=== PATIENT | male | born 1980 | race Caucasian/White ===

== ENCOUNTER 2016-09-23 12:23 | Outpatient (CLI) | payer OTHER ==
[~2016-09-23] VITALS: Ht 185.4 cm; Wt 117.9 kg
[~2016-09-23 12:23] MED LIST: CYCL10TA45 PO; CYCL10TA9 PO; GABA-488 PO; HYDR-3714 PO; HYDR-3816 PO; HYDR-757 PO; IBP800T PO; NAPR-243 PO; ONDA8TAB13 PO; PRD20T PO; PRED20TA PO; QTP200T PO; SULF1TAB35 PO; TIZA4CAP8 PO; TRAM50TA2 PO; TRM50T PO; VENL150C53 PO
[2016-09-23 12:27] VITALS: BP 145/99
--- OUTSIDE RECORDS SUMMARY | 2016-09-23 12:27 | XMS REPORT | Continuity of Care Document ---
Author Author [facility] Organization [facility] Address Unknown Phone Unavailable Care Team Providers Care Rehab Office Coordinator Name Role Phone NO, LOCAL PHYSICIAN PCP Unavailable Insurance Providers Payer Name Policy Number Subscriber Name Relationship [facility] Administration [id number] Nino Chan Jr 20 Self / Same As Patient Advance Directives Directive Response Recorded Date/Time Advance Directives No 08/08/14 6:59pm Health Care Power of Charge Rn No 08/08/14 6:59pm Resuscitation Status Full Code 08/08/14 6:59pm Problems Medical Problems Problem Onset Date Status Acute exacerbation of chronic low back pain Unknown Active Acute exacerbation of chronic low back pain Unknown Active Medications Medication Dose Route Sig Days/Qty Instructions Order Date Discontinued Date Status Cyclobenzaprine HCl (Flexeril) 1 Each PO TID PRN 15 Qty FOR MUSCLE SPASMS 11/09/09 05/28/13 Discontinued Naproxen 1 Each PO TID PRN 20 Qty 11/09/09 05/28/13 Discontinued Tramadol HCl 1 Tab PO FOUR TIMES DAILY 20 Qty FOR PAIN 11/09/09 Discontinued Ibuprofen 1 Each PO NEEDED 05/28/13 Active Venlafaxine Hcl 150 Mg PO DAILY 05/28/13 Active Hydrocodone Bit/Acetaminophen 1 Each PO EVERY 4HRS PRN 14 Qty 05/28/13 12/04/13 Discontinued Cyclobenzaprine HCl (Flexeril) 1 Each PO Q8HR PRN 10 Qty 05/28/13 Active Quetiapine Fumarate 1 Tab PO BEDTIME 12/04/13 Active Tramadol Hcl 50 Mg PO EVERY 4HRS PRN PAIN 20 Qty 12/04/13 08/08/14 Discontinued Hydrocodone Bit/Acetaminophen 1 Tab PO EVERY 4HRS PRN PAIN 14 Qty 08/08 Active Prednisone 40 Mg PO DAILY 10 Qty 08/08/14 Active Ondansetron 8 Mg PO EVERY 6 HOURS PRN NAUSEA/VOMITING 10 Qty 08/08/14 Active Social History Social History Problem Response Recorded Date/Time Alcohol Use Occasionally Uses 08/08/2014 6:59pm Recreational Drug Use Y marijuana 08/08/2014 6:59pm Recent Foreign Travel No 08/08/2014 6:59pm Smoking Status Current Everyday Smoker 08/08/2014 6:59pm Query Response Start Date Stop Date Smoking Status Current Everyday Smoker Hospital Discharge Instructions No hospital discharge instructions. Plan of Care No plan of care. Functional Status No functional status results. Allergies, Adverse Reactions, Alerts Allergen Type Severity Reaction Status Last Updated Penicillins ([id number]) Allergy Mild Active 11/09/09 Amoxicillin ([id number]) Allergy Mild Active 11/09/09 Immunizations No immunization records. Vital Signs Acute Vital Signs Vital Response Date/Time Temperature (Fahrenheit) 98.3 degrees F (97.6 - 99.5) Temperature (Calculated Celsius) 36.93024 degrees C (36.4 - 37.5) Temperature Source Temporal Pulse Rate (adult) 96 bpm (60 - 90) Respiratory Rate 18 bpm (12 - 24) O2 Sat by Pulse Oximetry 97 % (88 - 100) Blood Pressure 126/108 mm Hg Pain Pain Intensity 4 Height (Feet) 6 feet Height (Inches) 0 inches Height (Calculated Centimeters) 182.858813 cm Weight (Pounds) 254 pounds Weight (Calculated Grams) 143173.094 gm Weight (Calculated Kilograms) 115.312545 kilograms Calculated BMI 34.44 Results No known relevant diagnostic tests, laboratory data and/or discharge summary. Procedures No known history of procedures. Encounters Encounter Location Date/Time Departed Emergency Room [facility] 08/08/14 6:41pm Recent Diagnosis
[2016-09-23 12:58] LABS: BASOPHILS # (AUTO) 0.1 10^3/uL (0.0-0.1); BASOPHILS % (AUTO) 1 % (0-10); EOSINOPHILS # (AUTO) 0.3 10^3/uL (0.0-0.3); EOSINOPHILS % (AUTO) 5 % (0-10); LYMPHOCYTES # (AUTO) 1.8 X 10^3 (1.0-4.0); LYMPHOCYTES % (AUTO) 26 % (12-44); MEAN CORPUSCULAR HEMOGLOBIN 32 PG (25-34); MEAN CORPUSCULAR HGB CONC 35 G/DL (32-36); MEAN CORPUSCULAR VOLUME 89 FL (80-99); MONOCYTES # (AUTO) 0.3 X 10^3 (0.0-1.0); MONOCYTES % (AUTO) 5 % (0-12); NEUTROPHILS # (AUTO) 4.4 X 10^3 (1.8-7.8); NEUTROPHILS % (AUTO) 64 % (42-75); PLATELET COUNT 165 10^3/uL (130-400); RED BLOOD COUNT 5.04 10^6/uL (4.35-5.85); RED CELL DISTRIBUTION WIDTH 12.7 % (10.0-14.5); WHITE BLOOD COUNT 6.9 10^3/uL (4.3-11.0)
[2016-09-23 13:12] LABS: ANION GAP 12 MMOL/L (5-14); BLOOD UREA NITROGEN 5 MG/DL (7-18); BUN/CREATININE RATIO 5; CARBON DIOXIDE 26 MMOL/L (21-32); CHLORIDE 105 MMOL/L (98-107); CREATININE SERUM 1.01 MG/DL (0.60-1.30); GFR ESTIMATED > 60; GLUCOSE 154 MG/DL (70-105); POTASSIUM 3.7 MMOL/L (3.6-5.0); SODIUM 143 MMOL/L (135-145)
== END 2016-09-23 12:50 | disposition home or self-care (01) ==
LOC: PREOP 12:23
PROVIDERS: ATTEND Otolaryngology Otolaryngology/Facial Plastic Surgery
DX: Z01.810 Encounter for preprocedural cardiovascular examination (principal); Z01.812 Encounter for preprocedural laboratory examination; Z11.2 Encounter for screening for other bacterial diseases; R22.0 Localized swelling, mass and lump, head; H65.23 Chronic serous otitis media, bilateral; H69.93 Unspecified Eustachian tube disorder, bilateral
CPT/HCPCS: 36415; 80048; 85025; 87081; 93005

== ENCOUNTER 2016-09-26 06:00 | Day surgery (SDC) | payer OTHER ==
[~2016-09-26] VITALS: Ht 185.4 cm; Wt 117.9 kg
--- OUTSIDE RECORDS SUMMARY | 2016-09-26 06:10 | XMS REPORT | Continuity of Care Document ---
Author Author [facility] Organization [facility] Address Unknown Phone Unavailable Care Team Providers Care Oil Driller Name Role Phone NO, LOCAL PHYSICIAN PCP Unavailable Insurance Providers Payer Name Policy Number Subscriber Name Relationship [facility] Administration [id number] Nino Chan Jr 20 Self / Same As Patient Advance Directives Directive Response Recorded Date/Time Advance Directives No 08/08/14 6:59pm Health Care Power of Emergency Department Technician No 08/08/14 6:59pm Resuscitation Status Full Code [...] Type Severity Reaction Status Last Updated Penicillins ([id number]) Allergy Mild Active 11/09/09 Amoxicillin ([id number]) Allergy Mild Active 11/09/09 Immunizations No immunization records. Vital Signs Acute Vital Signs Vital Response Date/Time Temperature (Fahrenheit) 98.3 degrees F (97.6 - 99.5) Temperature (Calculated Celsius) 36.28807 degrees C (36.4 - 37.5) Temperature Source Temporal Pulse Rate (adult) 96 bpm (60 - 90) Respiratory Rate 18 bpm (12 - 24) O2 Sat by Pulse Oximetry 97 % (88 - 100) Blood Pressure 126/108 mm Hg Pain Pain Intensity 4 Height (Feet) 6 feet Height (Inches) 0 inches Height (Calculated Centimeters) 182.604624 cm Weight (Pounds) 254 pounds Weight (Calculated Grams) 574336.094 gm Weight (Calculated Kilograms) 115.393483 kilograms Calculated BMI 34.44 Results No known relevant diagnostic tests, laboratory data and/or discharge summary. Procedures No known history of procedures. Encounters Encounter Location Date/Time Departed Emergency Room [facility] 08/08/14 6:41pm Recent Diagnosis
--- OUTSIDE RECORDS SUMMARY | 2016-09-26 06:10 | XMS REPORT | Continuity of Care Document ---
Author Author [facility] Organization [facility] Address Unknown Phone Unavailable Care Team Providers Care Cosmetic Consultant Name Role Phone NO, LOCAL PHYSICIAN PCP Unavailable Insurance Providers Payer Name Policy Number Subscriber Name Relationship [facility] Administration [id number] Nino Chan Jr 20 Self / Same As Patient Advance Directives Directive Response Recorded Date/Time Advance Directives No 08/08/14 6:59pm Health Care Power of Mailing Clerk No 08/08/14 6:59pm Resuscitation Status Full Code [...] Type Severity Reaction Status Last Updated Penicillins ([id number]) Allergy Mild Active 11/09/09 Amoxicillin ([id number]) Allergy Mild Active 11/09/09 Immunizations No immunization records. Vital Signs Acute Vital Signs Vital Response Date/Time Temperature (Fahrenheit) 98.3 degrees F (97.6 - 99.5) Temperature (Calculated Celsius) 36.26927 degrees C (36.4 - 37.5) Temperature Source Temporal Pulse Rate (adult) 96 bpm (60 - 90) Respiratory Rate 18 bpm (12 - 24) O2 Sat by Pulse Oximetry 97 % (88 - 100) Blood Pressure 126/108 mm Hg Pain Pain Intensity 4 Height (Feet) 6 feet Height (Inches) 0 inches Height (Calculated Centimeters) 182.561965 cm Weight (Pounds) 254 pounds Weight (Calculated Grams) 415444.094 gm Weight (Calculated Kilograms) 115.957417 kilograms Calculated BMI 34.44 Results No known relevant diagnostic tests, laboratory data and/or discharge summary. Procedures No known history of procedures. Encounters Encounter Location Date/Time Departed Emergency Room [facility] 08/08/14 6:41pm Recent Diagnosis
[2016-09-26] MEDS ORDERED: LIDOCAINE 1% 10 MG/ML 0.2 ML SYR (FOR IV START) ONE (06:27)
[2016-09-26] MEDS: LACTATED RINGERS 1,000 ML IV PRN ×2 (06:40→07:47)
--- NOTE | 2016-09-26 06:40 | Progress Note-Pre Operative ---
Pre-Operative Progress Note H&P Reviewed The H&P was reviewed, patient examined and no changes noted. Date H&P Reviewed: Sep 26, 2016 Time H&P Reviewed: 06:35 Pre-Operative Diagnosis: Nasopharyngeal Mass, Bilat SUNSHINE MASON MD Sep 26, 2016 6:40 am
[2016-09-26] MEDS ORDERED: LIDOCAINE 1% 10 MG/ML 0.2 ML SYR (FOR IV START) INJ ONE (06:45)
[2016-09-26 06:53] VITALS: BP 144/97
[2016-09-26] MEDS ORDERED: fentaNYL INJECTION 100 MCG/2 ML AMP ONE (07:08)
[2016-09-26] MEDS ORDERED: proPOfol 200 MG/20 ML (DIPRIVAN) VIAL IV ONE (07:08)
[2016-09-26] MEDS ORDERED: LIDOCAINE PF 2% 10 ML (XYLOCAINE) AMP ONE (07:08)
[2016-09-26] MEDS ORDERED: ROCURONIUM 50 MG/5 ML (ZEMURON) VIAL IV ONE (07:08)
[2016-09-26] MEDS ORDERED: MIDAZOLAM 2 MG/2 ML (VERSED) VIAL ONE ×2 (07:09→07:31)
[2016-09-26] MEDS ORDERED: ONDANSETRON 4 MG/2 ML (SDV) Z0FRAN ONE (07:14)
[2016-09-26] MEDS ORDERED: LACTATED RINGERS 1,000 ML IV ONE ×2 (07:14→08:15)
[2016-09-26] MEDS ORDERED: SEVOFLURANE (ULTANE) 15 ML INHAL SOLN ONE ×4 (07:14→08:15)
[2016-09-26] MEDS ORDERED: DEXAMETHASONE PF 10 MG/ML (DECADRON) VIAL ONE (07:14)
[2016-09-26] MEDS ORDERED: NEOSTIGMINE (BLOXIVERZ ) 1 MG/1ML 10 ML VIAL ONE (07:48)
[2016-09-26] MEDS ORDERED: GLYCOPYRROLATE 0.2 MG/ML (ROBINUL) 2 ML VIAL ONE (07:48)
--- NOTE | 2016-09-26 07:56 | Progress Note-Post Operative ---
Post-Operative Progess Note Pre-Operative Diagnosis NASOPHARYNGEAL MASS, BILAT AYO Post-Operative Diagnosis same Post-Op Procedure Note Date of Procedure: Sep 26, 2016 Name of Procedure: BMT, REmoval of Nasopharyngeal Mass Anesthesia Type get Estimated blood loss (mL): minimal Specimen(s) collected nasopharyngeal mass SUNSHINE LOPEZ MD Sep 26, 2016 7:56 am
[2016-09-26] MEDS ORDERED: APAP 325 MG/10.15 ML LIQ (TYLENOL) UDC PO PRN (08:00)
[2016-09-26] MEDS ORDERED: HYDROcodone/APAP 5 MG/325 MG (LORTAB) TAB PO PRN (08:00)
[2016-09-26] MEDS ORDERED: morphine INJ 10 MG/ML 1ML (SYR OR VIAL) ONE (08:22)
[2016-09-26] MEDS ORDERED: ONDANSETRON 4 MG/2 ML (SDV) Z0FRAN IV PRN (08:30)
[2016-09-26] MEDS ORDERED: PROMETHAZINE INJ 25 MG/ML (PHENERGAN) AMP IV PRN (08:30)
[2016-09-26] MEDS ORDERED: MEPERIDINE (DEMEROL) INJ 50 MG/ML IV PRN (08:30)
[2016-09-26] MEDS ORDERED: fentaNYL INJECTION 250 MCG/5 ML AMP IV PRN (08:30)
[2016-09-26] MEDS: morphine INJ 10 MG/ML 1ML (SYR OR VIAL) IV PRN ×2 (08:32→08:36)
[2016-09-26 08:50] VITALS: BP 148/96
[2016-09-26] MEDS ORDERED: HYDR-3812 PO (09:06)
[2016-09-26] MEDS ORDERED: CIPR5DRO EACH EAR (09:06)
[2016-09-26 09:20] VITALS: BP 147/96
[2016-09-26 09:50] VITALS: BP 147/97
== END 2016-09-26 10:00 | disposition home or self-care (01) ==
LOC: SDC 06:00
PROVIDERS: ATTEND Otolaryngology Otolaryngology/Facial Plastic Surgery
DX: H65.23 Chronic serous otitis media, bilateral (principal); J34.89 Other specified disorders of nose and nasal sinuses; F17.210 Nicotine dependence, cigarettes, uncomplicated
CPT/HCPCS: 87081

== ENCOUNTER 2016-11-11 18:36 | Emergency (ER) | payer OTHER ==
[~2016-11-11] VITALS: Ht 182.9 cm; Wt 124.7 kg
[~2016-11-11 18:36] MED LIST changes: +CIPR5DRO EACH EAR; +HYDR-3812 PO
--- OUTSIDE RECORDS SUMMARY | 2016-11-11 18:42 | XMS REPORT | Continuity of Care Document ---
Author Author [facility] Organization [facility] Address Unknown Phone Unavailable Care Team Providers Care Radiographer Name Role Phone NO, LOCAL PHYSICIAN PCP Unavailable Insurance Providers Payer Name Policy Number Subscriber Name Relationship [employer] [id number] Sunshine Ernst Jr 20 Self / Same As Patient Advance Directives Directive Response Recorded Date/Time Advance Directives No 09/26/16 7:04am Health Care Power of Bass Singer No 09/26/16 7:04am Organ Donor No 09/26/16 7:04am Resuscitation Status Full Code 09/26/16 7:04am Problems Active Problems Medical Problem Onset Date Status Acute exacerbation of chronic low back pain Unknown Acute Acute exacerbation of chronic low back pain Unknown Acute Acute exacerbation of chronic low back pain Unknown Acute Lumbar radiculopathy Unknown Acute Puncture wound of sole of right foot without complication Unknown Acute Medications Current Home Medications Medication Dose Units Route Directions Days/Qty Instructions Start Date Ciprofloxacin Hcl 5 Ml 3 Drops Each Ear Twice A Day 5 Days 09/26/16 Hydrocodone/Acetaminophen 1 Each 1-2 Tab Oral Every 4HRS as needed for Pain 40 09/26/16 Past Home Medications Medication Directions Ordered Status Cyclobenzaprine Hcl (Flexeril) 10 Mg Tablet, 1 Each Oral Three Times A Day And Prn 11/09/09 Discontinued Naproxen 500 Mg Tablet, 1 Each Oral Three Times A Day And Prn 11/09/09 Discontinued Tramadol Hcl 50 Mg Tablet, 1 Tab Oral Four Times Daily 11/09/09 Discontinued Ibuprofen 800 Mg Tablet, 1 Each Oral As Needed 05/28/13 Discontinued Venlafaxine Hcl 150 Mg Cap.sr.24h, 150 Mg Oral Daily 05/28/13 Discontinued Hydrocodone Bit/Acetaminophen 1 Each Tablet, 1 Each Oral Every 4HRS as needed 05/28/13 Discontinued Cyclobenzaprine Hcl (Flexeril) 10 Mg Tablet, 1 Each Oral Q8hr Prn 05/28/13 Discontinued Quetiapine Fumarate 200 Mg Tablet, 1 Tab Oral Bedtime 12/04/13 Discontinued Tramadol Hcl 50 Mg Tablet, 50 Mg Oral Every 4HRS as needed for Pain 12/04/13 Discontinued Hydrocodone Bit/Acetaminophen 1 Tab Tablet, 1 Tab Oral Every 4HRS as needed for Pain 08/08/14 Discontinued Prednisone 20 Mg Tablet, 40 Mg Oral Daily 08/08/14 Discontinued Ondansetron 8 Mg Tab.rapdis, 8 Mg Oral Every 6 Hours as needed for Nausea/ Vomiting 08/08/14 Discontinued Naproxen 500 Mg Tablet, 1 Each Oral Twice A Day as needed for Pain 12/29/14 Discontinued Cyclobenzaprine Hcl 10 Mg Tablet, 10 Mg Oral Every 8HRS as needed for Spasms 12/29/14 Discontinued Prednisone 20 Mg Tablet, 40 Mg Oral Daily 12/29/14 Discontinued Naproxen 500 Mg Tablet, 1 Each Oral Twice A Day as needed for Pain 12/29/14 Discontinued Cyclobenzaprine Hcl 10 Mg Tablet, 10 Mg Oral Every 8HRS as needed for Spasms 12/29/14 Discontinued Prednisone 20 Mg Tablet, 40 Mg Oral Daily 12/29/14 Discontinued Gabapentin 300 Mg Capsule, 300 Mg Oral 11/30/15 Discontinued Tizanidine Hcl 4 Mg Capsule, 4 Mg Oral 11/30/15 Discontinued Sulfamethoxazole/Trimethoprim 1 Each Tablet, 1 Each Oral Twice A Day Discontinued Sulfamethoxazole/Trimethoprim 1 Each Tablet, 1 Each Oral Twice A Day Discontinued Hydrocodone/Acetaminophen 1 Each Tablet, 1 Each Oral Every 6 Hours 04/15/16 Discontinued Prednisone 20 Mg Tab, 40 Mg Oral Daily 04/15/16 Discontinued Social History Social History Problem Response Recorded Date/Time Alcohol Use Occasionally Uses 11/30/2015 7:08pm Recreational Drug Use Y marijuana 11/30/2015 7:08pm Recent Foreign Travel No 09/26/2016 6:52am Recent Infectious Disease Exposure No 09/26/2016 6:52am Smoking Status Current Everyday Smoker 09/26/2016 7:04am Do you dip or chew tobacco? No 11/30/2015 7:08pm Type Used Cigarettes 09/26/2016 12:02pm Recent Hopitalizations No 09/26/2016 7:04am Query Response Start Date Stop Date Smoking Status Current Everyday Smoker Hospital Discharge Instructions No hospital discharge instructions. Plan of Care Discharge Date 09/26/16 10:00am Instructions/Education Provided ANESTHESIA INSTRUCTIONS POSTOP DR. LOPEZ-SINUS SURGERY DR. LOPEZ-TYMPANOSTOMY TUBES DR. LOPEZ-NASAL IRRIGATION Prescriptions See Medication Section Functional Status No functional status results. Allergies, Adverse Reactions, Alerts Allergen Type Severity Reaction Status Last Updated Penicillins ([id number]) Allergy Mild Active 11/09/09 amoxicillin ([id number]) Allergy Mild Active 11/09/09 Immunizations No immunization records. Vital Signs Acute Vital Signs Vital Response Date/Time Temperature (Fahrenheit) 97.7 degrees F (97.6 - 99.5) 09/26/2016 9:50am Temperature (Calculated Celsius) 36.23566 degrees C (36.4 - 37.5) 09/26/2016 9:50am Temperature Source Tympanic 09/26/2016 9:50am Pulse Rate (adult) 94 bpm (60 - 90) 09/26/2016 9:50am Respiratory Rate 16 bpm (12 - 24) 09/26/2016 9:50am O2 Sat by Pulse Oximetry 94 % (88 - 100) 09/26/2016 9:50am Blood Pressure 147/97 mm Hg 09/26/2016 9:50am Blood Pressure Mean 113 mm Hg 09/26/2016 6:53am Pain Numeric Pain Scale 2 09/26/2016 9:50am Pain Intensity 2 09/26/2016 9:50am Height (Feet) 6 feet 09/26/2016 6:49am Height (Inches) 1.00 inches 09/26/2016 6:49am Height (Calculated Centimeters) 185.247219 cm 09/26/2016 6:49am Weight (Pounds) 260 pounds 09/26/2016 6:49am Weight (Ounces) 0.0 oz 09/26/2016 6:49am Weight (Calculated Grams) 522356.02 gm 09/26/2016 6:49am Weight (Calculated Kilograms) 117.537088 kilograms 09/26/2016 6:49am Calculated BMI 34.3 09/26/2016 6:49am Results Pending Laboratory Results Test Name Collection Date/Time Procedures Procedure Status Date Provider(s) Biopsy of nasopharynx Completed 09/26/16 SUNSHINE LOPEZ MD Bilateral myringotomies with insertion of ventilation tubes Completed SUNSHINE LOPEZ MD Tracing only of electrocardiogram Completed 09/23/16 SUNSHINE LOPEZ MD Encounters Encounter Location Arrival/Admit Date Discharge/Depart Date Attending Provider Departed Surgical Day Care [facility] 09/26/16 6:00am 10:00am SUNSHINE LOPEZ MD Departed Clinic [facility] 09/23/16 12:23pm 09/23/16 12: 50pm SUNSHINE LOPEZ MD
[2016-11-11] MEDS ORDERED: NAPR500T PO (18:54)
[2016-11-11] MEDS ORDERED: Flexeril PO (18:54)
--- NOTE | 2016-11-11 18:55 | ED Back Pain ---
General Stated Complaint: BACK PAIN Source of Information: Patient Exam Limitations: No Limitations History of Present Illness Time Seen by Provider: 18:52 Initial Comments To ER with complaints of low back pain that starts in the low back and radiates up his back into his neck and is causing him a headache. This started earlier today after he was doing yard work for his brother. No specific injury but pain has become progressive as time has gone on. No fevers or chills. No radiation down the legs. Location: Paraspinous Muscles Timing/Duration: 4-6 Hours Severity: Mild Associated Symptoms: No muscle spasms, lower back pain Allergies and Home Medications Allergies Coded Allergies: Penicillins (Unverified Allergy, Mild, 11/09/09) amoxicillin (Unverified Allergy, Mild, 11/09/09) Home Medications Ciprofloxacin HCl 5 Ml Drops 5Days 3 DROPS EACH EAR BID Prescribed by: LORA LABOY on 09/26/16 09 Hydrocodone/Acetaminophen 1 Each Tablet #40 1-2 TAB PO Q4H PRN PRN PAIN Prescribed by: LOAR LABOY on 09/26/16 0906 Constitutional: see HPINo chills, No fever EENTM: see HPI Respiratory: no symptoms reported Cardiovascular: no symptoms reported Genitourinary: no symptoms reported Musculoskeletal: see HPI back pain Skin: no symptoms reported Psychiatric/Neurological: No Symptoms Reported Past Redxuip-Jzutvj-Ctmwth Hx Patient Social History Type Used: Cigarettes Recent Foreign Travel: No Contact w/Someone Who Travel: No Recent Hopitalizations: No Immunizations Up To Date Tetanus Booster (TDap): More than 5yrs Seasonal Allergies Seasonal Allergies: No Surgeries HX Surgeries: Yes (NECK, TUBES IN EARS) Surgeries: Cystectomy Respiratory Hx Respiratory Disorders: No Cardiovascular Hx Cardiac Disorders: No Neurological Hx Neurological Disorders: No Reproductive System Hx Reproductive Disorders: No Genitourinary Hx Genitourinary Disorders: No Gastrointestinal Hx Gastrointestinal Disorders: No Musculoskeletal Hx Musculoskeletal Disorders: Yes Musculoskeletal Disorders: Chronic Back Pain Endocrine Hx Endocrine Disorders: No HEENT HX ENT Disorders: Yes (NASOPHARYNGEAL MASS) HEENT Disorders: Chronic Ear Infection Loss of Vision: Denies Hearing Impairment: Denies Cancer Hx Cancer: No Psychosocial Hx Psychiatric Problems: Yes Behavioral Health Disorders: Anxiety, PTSD, Depression Integumentary HX Skin/Integumentary Disorder: No Blood Transfusions Hx Blood Disorders: No Family Medical History Significant Family History: No Pertinent Family Hx Physical Exam Vital Signs Capillary Refill : General Appearance: No Apparent Distress WD/WN HEENT: PERRL/EOMI TMs Normal Neck: Full Range of Motion Normal Inspection Respiratory: No Accessory Muscle Use No Respiratory Distress Gastrointestinal: Non Tender Soft Neurologic/Psychiatric: Alert Oriented x3 Skin: Normal Color Warm/Dry Progress/Results/Core Measures Results/Orders My Orders Orders-LINCOLN CHARLES APRN Ketorolac Injection (Toradol Injection) (11/11/16 19:00) Orphenadrine Injection (Norflex Injectio (11/11/16 19:00) Departure Impression Impression: Primary Impression: low back pain Disposition: HOME, SELF-CARE Condition: Stable Departure-Patient Inst. Decision time for Depature: 18:53 Referrals: NO,LOCAL PHYSICIAN (PCP/Family) Primary Care Physician Patient Instructions: Low Back Pain (DC) Add. Discharge Instructions: 1. Medication as directed 2. See your doctor next week 3. Scripts [Flexeril] No Conflict Check5 Mg PO TID PRN PAIN #20 Prov:LINCOLN CHARLES APRN 11/11/16 Naproxen (Naprosyn)500 Mg [id number] Mg PO BID PRN BACK PAIN #30 TAB Prov:LINCOLN CHARLES APRN 11/11/16 LINCOLN CHARLES APRN Nov 11, 2016 18:54
[2016-11-11] MEDS ORDERED: KETOROLAC 60 MG/2 ML VIAL IM ONE (19:00)
[2016-11-11] MEDS ORDERED: ORPHENADRINE 60 MG/2 ML (NORFLEX) AMP IM ONE (19:00)
[2016-11-11 19:26] VITALS: BP 129/94
== END 2016-11-11 19:25 | disposition home or self-care (01) ==
LOC: EDUNIT# 18:36 → ER 18:38
DX: M54.5 Low back pain (principal)
CPT/HCPCS: 96372; 99281

== ENCOUNTER 2017-11-18 11:03 | Emergency (ER) | payer OTHER ==
[~2017-11-18] VITALS: Ht 188 cm; Wt 124.7 kg
[~2017-11-18 11:03] MED LIST changes: +ACHD5005 PO; +Flexeril PO; +HYDR-34 PO; -HYDR-3812 PO; -HYDR-3816 PO; +NAPR-1071 PO
--- OUTSIDE RECORDS SUMMARY | 2017-11-18 11:09 | XMS REPORT ---
Author Author DUNCAN SIDDIQUI Organization [employer] Address Unknown Phone Unavailable Care Team Providers Care Group Home Worker Name Role Phone DUNCAN SIDDIQUI CP Unavailable Allergies, Adverse Reactions, Alerts Substance Reaction Event Type Penicillin V Potassium Info Not Available Drug Allergy Amoxicillin Info Not Available Drug Allergy Problems Problem Type Condition Code Onset Dates Condition Status Problem Bilateral tinnitus H93.13 Active Problem Lumbago 724.2 Active Problem Hearing loss, unspecified laterality H91.90 Active Assessment Bilateral tinnitus H93.13 Active Assessment Acute suppurative otitis media of left ear without spontaneous rupture of tympanic membrane, recurrence not specified H66.002 Active Assessment Hearing loss, unspecified laterality H91.90 Active Medications Medication Code System Code Instructions Start Date End Date Status Dosage Zithromax Z-Abner [facility] [address]-65 250 MG Orally Once a day Jul 01, 2016 Jul 06, 2016 2 tablets on the first day, then 1 tablet daily for 4 days Fluticasone Propionate [facility] [address]-95 50 MCG/ACT Nasally twice a day Jul 01, 2016 1 spray in each nostril Procedures Procedure Coding System Code Date Office Visit, New Pt., Level 2 CPT-4 86704 Jul 01, 2016 Vital Signs Date/Time: Jul 01, 2016 Cardiac Monitoring Heart Rate 90 bpm Weight 269.1 lbs Height 71 in BMI 37.53 Index Blood Pressure Diastolic 84 mmHg Blood Pressure Systolic 126 mmHg Results No Known Results Summary Purpose [employer] Submission
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
--- NOTE | 2017-11-18 11:34 | ED Back Pain ---
General Chief Complaint: Back Problems Stated Complaint: BACK PAIN History of Present Illness Date Seen by Provider: Nov 18, 2017 Time Seen by Provider: 11:29 Initial Comments Patient to the emergency room with complaints of lower diffuse pain. Patient reports waking up yesterday morning 11/17/17 with a stiff back and reports having to take a hot shower to loosen up the muscle. Patient denies injury but reports jumping on the trampoline on 11/14/17 and that he may have pulled a muscle. Patient denies loss of bowel or bladder, denies any loss of sensation to the genital area. Location: Lumbar Spine Timing/Duration: 1-2 Days Severity: Mild, Moderate Pain/Injury Location: None Radiation: Other (hips bilaterally) Method of Injury: Unknown (possibly from jumping on a trampoline) Modifying Factors: Improves With Other (ICY Hot) Associated Symptoms: denies symptoms (review) Allergies and Home Medications Allergies Coded Allergies: Penicillins (Unverified Allergy, Mild, 11/09/09) amoxicillin (Unverified Allergy, Mild, 11/09/09) Home Medications No Active Prescriptions or Reported Meds Patient Home Medication List Home Medication List Reviewed: Yes Constitutional: see HPI, No chills, No fever EENTM: see HPI Respiratory: no symptoms reported, see HPI Cardiovascular: no symptoms reported, see HPI Gastrointestinal: no symptoms reported, see HPI Genitourinary: no symptoms reported Musculoskeletal: see HPI, back pain Skin: no symptoms reported Psychiatric/Neurological: No Symptoms Reported Past Muygdcd-Lamowt-Ymgqcf Hx Patient Social History Drug of Choice: hx cannibus Type Used: Cigarettes 2nd Hand Smoke Exposure: Yes Recent Foreign Travel: No Contact w/Someone Who Travel: No Recent Hopitalizations: No Immunizations Up To Date Tetanus Booster (TDap): More than 5yrs Seasonal Allergies Seasonal Allergies: No Surgeries Surgeries: Cystectomy Reproductive System Hx Reproductive Disorders: No Musculoskeletal Musculoskeletal Disorders: Chronic Back Pain HEENT HEENT Disorders: Chronic Ear Infection Loss of Vision: Denies Hearing Impairment: Denies Psychosocial Behavioral Health Disorders: Anxiety, PTSD, Depression Family Medical History Significant Family History: No Pertinent Family Hx Physical Exam Vital Signs Capillary Refill : General Appearance: No Apparent Distress, WD/WN HEENT: PERRL/EOMI, TMs Normal Neck: Full Range of Motion, Normal Inspection Respiratory: No Accessory Muscle Use, No Respiratory Distress Gastrointestinal: Normal Bowel Sounds, Non Tender, Soft Extremity: Normal Capillary Refill, Normal Inspection Neurologic/Psychiatric: Alert, Oriented x3, No Motor/Sensory Deficits Skin: Normal Color, Warm/Dry Progress/Results/Core Measures Results/Orders My Orders Orders - LINCOLN CHARLES APRN Ketorolac Injection (Toradol Injection) (11/18/17 11:45) Orphenadrine Injection (Norflex Injectio (11/18/17 11:45) Departure Impression Impression: Primary Impression: Back pain Disposition: HOME, SELF-CARE Condition: Stable Departure-Patient Inst. Decision time for Depature: 11:43 Referrals: NO,LOCAL PHYSICIAN (PCP) Primary Care Physician Patient Instructions: Lumbar Muscle Strain (DC) Add. Discharge Instructions: 1. Medication as directed 2. Return to ER for any concerns All discharge instructions reviewed with patient and/or family. Voiced understanding. Scripts Cyclobenzaprine HCl (Cyclobenzaprine HCl) 5 Mg Tablet 5 MG PO TID Y for PAIN-MODERATE, #21 TAB Prov: LINCOLN CHARLES APRN 11/18/17 Naproxen (Naproxen) 500 Mg Tablet 500 MG PO BID Y for BACK PAIN, #30 TAB Prov: LINCOLN CHARLES APRN 11/18/17 Images Torso/Trunk 1 - LINCOLN CHARLES APRN Nov 18, 2017 11:34
[2017-11-18 11:45] VITALS: BP 161/93
[2017-11-18] MEDS ORDERED: CYCL5TAB PO (11:45)
[2017-11-18] MEDS ORDERED: ORPHENADRINE 60 MG/2 ML (NORFLEX) AMP IM ONE (11:45)
[2017-11-18] MEDS ORDERED: KETOROLAC 60 MG/2 ML VIAL IM ONE (11:45)
[2017-11-18] MEDS ORDERED: NAPR-915 PO (11:45)
== END 2017-11-18 11:45 | disposition home or self-care (01) ==
LOC: EDUNIT# 11:03 → ER 11:04
DX: M54.5 Low back pain (principal); F41.9 Anxiety disorder, unspecified; F43.10 Post-traumatic stress disorder, unspecified; F32.9 Major depressive disorder, single episode, unspecified; Z88.0 Allergy status to penicillin; Z88.1 Allergy status to other antibiotic agents; Z77.22 Contact with and (suspected) exposure to environmental tobacco smoke (acute) (chronic); Z90.6 Acquired absence of other parts of urinary tract
CPT/HCPCS: 96372; 99284

== ENCOUNTER 2018-08-05 13:03 | Emergency (ER) | payer OTHER ==
[~2018-08-05] VITALS: Ht 182.9 cm; Wt 129.3 kg
[~2018-08-05 13:03] MED LIST changes: +CYCL5TAB PO; +NAPR-915 PO
[2018-08-05] MEDS ORDERED: LISINOPRIL (13:27)
[2018-08-05] MEDS ORDERED: CEFD300C3 PO (13:44)
--- NOTE | 2018-08-05 13:45 | ED EENT ---
History of Present Illness General Chief Complaint: Ear Problems Stated Complaint: RT. EAR INJURY Nursing Triage Note: ARRIVED VIA AMB TO ROOM 08 WITHOUT DIFFICULTY. STATES HE WOKE UP THIS AM WITH BLOOD IN HIS PILLOW AND PULLED BLOOD IN HIS EAR. DENIES INJURY OR PAIN. Source: patient Exam Limitations: no limitations History of Present Illness Date Seen by Provider: Aug 05, 2018 Time Seen by Provider: 13:41 Initial Comments Patient is a 38-year-old male who presents to the emergency room with complaints of right ear pain and bloody drainage from his right ear that he noticed this morning when he woke up. He denies known injury. He does have tubes in his years for frequent ear infections. Denies fevers. Timing/Duration: this morning Location: ear (R) Prearrival Treatment: no prearrival treatment Associated Symptoms: ear drainage Allergies and Home Medications Allergies Coded Allergies: Penicillins (Unverified Allergy, Mild, 11/09/09) amoxicillin (Unverified Allergy, Mild, 11/09/09) Home Medications Cefdinir 300 Mg Capsule, 300 MG PO BID Prescribed by: MAGUE CRABTREE on 08/05/18 1344 Levofloxacin 750 Mg Tablet, 750 MG PO DAILY Prescribed by: MAGUE CRABTREE on 08/05/18 1431 Patient Home Medication List Home Medication List Reviewed: Yes Review of Systems Review of Systems Constitutional: no symptoms reported, see HPI Ears: See HPI, Pain, Bloody Discharge (right ear) All Other Systems Reviewed Negative Unless Noted: Yes Past Msakwev-Unageq-Hwzxmi Hx Past Med/Social Hx: Reviewed Nursing Past Med/Soc Hx Patient Social History Alcohol Use: Denies Use Recreational Drug Use: Yes Drug of Choice: POT Smoking Status: Current Everyday Smoker Type Used: Cigarettes 2nd Hand Smoke Exposure: Yes Recent Foreign Travel: No Contact w/Someone Who Travel: No Recent Infectious Disease Expo: No Recent Hopitalizations: No Immunizations Up To Date Tetanus Booster (TDap): More than 5yrs Seasonal Allergies Seasonal Allergies: No Past Medical History Surgeries: Yes (NECK, TUBES IN EARS) Cystectomy Respiratory: No Cardiac: Yes Hypertension Neurological: No Reproductive Disorders: No Genitourinary: No Gastrointestinal: No Musculoskeletal: Yes Chronic Back Pain Endocrine: No Chronic Ear Infection Loss of Vision: Denies Hearing Impairment: Denies Cancer: No Psychosocial: Yes Anxiety, PTSD, Depression Integumentary: No Blood Disorders: No Family Medical History Reviewed Nursing Family Hx No Pertinent Family Hx Physical Exam Vital Signs Vital Signs - First Documented 08/05/18 13:17 Temp 97.5 Pulse 109 Resp 16 B/P (MAP) 163/94 (117) Pulse Ox 98 O2 Delivery Room Air Height, Weight, BMI Height: 0'72.00" Weight: 285lbs. 0.0oz. 129.482097ma; 34.3 BMI Method:Stated General Appearance: WD/WN, no apparent distress Eyes: bilateral eye normal inspection, bilateral eye PERRL, bilateral eye EOMI Ears: right ear bleeding, right ear discharge (purulent bloody discharge from tube be in ear.); bilateral ear auricle normal, bilateral ear TM normal (tube is in place) Cardiovascular: normal peripheral pulses, regular rate, rhythm, no edema, no gallop, no JVD, no murmur Respiratory: chest non-tender, lungs clear, normal breath sounds, no respiratory distress, no accessory muscle use Neurologic/Psychiatric: alert, oriented x 3 Progress/Results/Core Measures Results/Orders Vital Signs/I&O 08/05/18 08/05/18 13:17 13:57 Temp 97.5 97.5 Pulse 109 109 Resp 16 16 B/P (MAP) 163/94 (117) 163/94 (117) Pulse Ox 98 98 O2 Delivery Room Air Blood Pressure Mean: 117 Progress Progress Note : Progress Note Patient presented back to the emergency room shortly after discharge and reported that he could not afford the Ceftin ear that was prescribed. Levaquin was ordered. Departure Impression Primary Impression: Otitis media Disposition: 01 HOME, SELF-CARE Condition: Stable/Unchanged Departure-Patient Inst. Decision time for Depature: 13:42 Referrals: NO,LOCAL PHYSICIAN (PCP) Primary Care Physician Patient Instructions: Ear Infections (Otitis Media) (DC) Add. Discharge Instructions: Take medications as directed. Tylenol and ibuprofen as directed by the bottle for pain relief. Follow-up with your primary care provider and Dr. Dias within 1 week for recheck. Return back to the emergency room for any worsening symptoms or concerns as needed. All discharge instructions reviewed with patient and/or family. Voiced understanding. Scripts Levofloxacin (Levaquin) 750 Mg Tablet 750 MG PO DAILY for 7 Days, #7 TAB Prov: MAGUE CRABTREE 08/05/18 Cefdinir (Cefdinir) 300 Mg Capsule 300 MG PO BID for 10 Days, #20 CAP Prov: MAGUE CRABTREE 08/05/18 MAGUE CRABTREE Aug 05, 2018 13:44
[2018-08-05 13:57] VITALS: BP 163/94
[2018-08-05] MEDS ORDERED: LEVO750T9 PO (14:31)
== END 2018-08-05 13:57 | disposition home or self-care (01) ==
LOC: EDUNIT# 13:03 → ER 13:06
DX: H66.91 Otitis media, unspecified, right ear (principal); I10 Essential (primary) hypertension; F41.9 Anxiety disorder, unspecified; F43.10 Post-traumatic stress disorder, unspecified; F32.9 Major depressive disorder, single episode, unspecified; F12.10 Cannabis abuse, uncomplicated; F17.210 Nicotine dependence, cigarettes, uncomplicated; Z88.0 Allergy status to penicillin; Z90.6 Acquired absence of other parts of urinary tract
CPT/HCPCS: 99282

== ENCOUNTER 2020-01-26 09:25 | Emergency (ER) | payer OTHER ==
[~2020-01-26] VITALS: Ht 182 cm; Wt 123.0 kg
[~2020-01-26 09:25] MED LIST changes: +CEFD300C3 PO; +LEVO750T9 PO; +LISINOPRIL
[2020-01-26] MEDS ORDERED: LACTATED RINGERS 1,000 ML IV STA (09:39)
[2020-01-26] MEDS ORDERED: KETOROLAC 30 MG/ML VIAL IVP STA (09:39)
[2020-01-26] MEDS ORDERED: ONDANSETRON 4 MG/2 ML (SDV) Z0FRAN IVP ONE (09:45)
[2020-01-26 09:50] LABS: BILIRUBIN,URINE NEGATIVE (NEGATIVE); CLARITY,URINE CLEAR; COLOR,URINE YELLOW; GLUCOSE, URINE (UA) NEGATIVE (NEGATIVE); KETONES,URINE NEGATIVE (NEGATIVE); LEUKOCYTE ESTERASE ,URINE NEGATIVE (NEGATIVE); NITRITE,URINE NEGATIVE (NEGATIVE); PH,URINE 8.5 (5-9); PROTEIN,URINE TRACE (NEGATIVE)
[2020-01-26 09:52] LABS: BASOPHILS # (AUTO) 0.1 10^3/uL (0.0-0.1); BASOPHILS % (AUTO) 1 % (0-10); EOSINOPHILS # (AUTO) 1.2 10^3/uL (0.0-0.3); EOSINOPHILS % (AUTO) 7 % (0-10); HEMATOCRIT 51 % (40-54); HEMOGLOBIN 17.5 G/DL (13.3-17.7); LYMPHOCYTES % (AUTO) 12 % (12-44); MEAN CORPUSCULAR HEMOGLOBIN 31 PG (25-34); MEAN CORPUSCULAR HGB CONC 34 G/DL (32-36); MEAN CORPUSCULAR VOLUME 90 FL (80-99); MONOCYTES # (AUTO) 0.9 X 10^3 (0.0-1.0); MONOCYTES % (AUTO) 5 % (0-12); NEUTROPHILS # (AUTO) 12.7 X 10^3 (1.8-7.8); NEUTROPHILS % (AUTO) 75 % (42-75); PLATELET COUNT 182 10^3/uL (130-400); RED CELL DISTRIBUTION WIDTH 13.3 % (10.0-14.5); WHITE BLOOD COUNT 16.9 10^3/uL (4.3-11.0)
--- NOTE | 2020-01-26 09:53 | ED Abdominal Pain ---
General Chief Complaint: Abdominal/GI Problems Stated Complaint: STOMACH PAIN Nursing Triage Note: PT CO OF ABD PAIN THAT STARTED LAST PM RADIATED TO SCROTUM. PT CO OF SWEATING RATES PAIN 06/24 Sepsis Screen: No Definite Risk Source of Information: Patient Exam Limitations: No Limitations History of Present Illness Date Seen by Provider: January 26, 2020 Time Seen by Provider: 09:36 Initial Comments Here with complaint of lower abdominal pain that started last night and has worsened this morning. States that the pain radiates from the bladder area down to the groin. The pain has caused him to go into sweats and a little nauseated. Denies dysuria specifically. Denies blood in his urine or stool. Denies breathing problems or fevers. He has never had anything like this before. No history of kidney stones. Timing/Duration: 12 Hours, Changing Over Time Severity/Quality: Moderate, Aching, Cramping Location: Suprapubic Radiation: Groin Activities at Onset: None Modifying Factors: Improves With Other (no exacerbating or relieving factors) Associated Symptoms: No Back Pain, No Chest Pain; Diaphoresis; No Fever/Chills; Nausea/Vomiting; No Shortness of Air, No Swelling/Mass in Abdomen, No Weakness Allergies and Home Medications Allergies Coded Allergies: Penicillins (Unverified Allergy, Mild, 11/09/09) amoxicillin (Unverified Allergy, Mild, 11/09/09) Home Medications Cefdinir 300 Mg Capsule, 300 MG PO BID Prescribed by: MAGUE CRABTREE on 08/05/18 1344 Levofloxacin 750 Mg Tablet, 750 MG PO DAILY Prescribed by: MAGUE CRABTREE on 08/05/18 1431 Patient Home Medication List Home Medication List Reviewed: Yes Review of Systems Review of Systems Constitutional: see HPI; No chills, No fever EENTM: No Symptoms Reported Respiratory: No Symptoms Reported Gastrointestinal: See HPI Genitourinary: See HPI Musculoskeletal: no symptoms reported Skin: no symptoms reported Psychiatric/Neurological: No Symptoms Reported All Other Systems Reviewed Negative Unless Noted: Yes Past Hfuzkvf-Ulujhs-Tacpie Hx Past Med/Social Hx: Reviewed Nursing Past Med/Soc Hx Patient Social History Alcohol Use: Denies Use 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 Smoking Status: Current Everyday Smoker Type Used: Cigarettes 2nd Hand Smoke Exposure: Yes Recent Foreign Travel: No Contact w/Someone Who Travel: No Recent Infectious Disease Expo: No Recent Hopitalizations: No Physical Abuse: No Sexual Abuse: No Immunizations Up To Date Tetanus Booster (TDap): More than 5yrs Seasonal Allergies Seasonal Allergies: No Past Medical History Surgeries: Yes (NECK, TUBES IN EARS) Cystectomy Respiratory: No Cardiac: Yes Hypertension Neurological: No Reproductive Disorders: No Genitourinary: No Gastrointestinal: No Musculoskeletal: Yes Chronic Back Pain Endocrine: No Chronic Ear Infection Loss of Vision: Denies Hearing Impairment: Denies Cancer: No Psychosocial: Yes Anxiety, PTSD, Depression Integumentary: No Blood Disorders: No Family Medical History Reviewed Nursing Family Hx No Pertinent Family Hx Physical Exam Vital Signs Vital Signs - First Documented 01/26/20 09:25 Temp 36.7 Pulse 105 Resp 18 B/P (MAP) 140/94 (109) Pulse Ox 100 Capillary Refill : Less Than 3 Seconds Height/Weight/BMI Height: 0'72.00" Weight: 285lbs. 0.0oz. 129.550229zp; 37.00 BMI Method:Stated General Appearance: WD/WN, mild distress HEENT: PERRL/EOMI, pharynx normal Neck: full range of motion, supple Respiratory: lungs clear, normal breath sounds Cardiovascular: no murmur, tachycardia Peripheral Pulses: 2+ Dorsalis Pedis (R), 2+ Left Dors-Pedis (L), 2+ Radial Pulses (R), 2+ Radial Pulses (L) Gastrointestinal: soft, tenderness (suprapubic region) Extremities: non-tender, normal inspection Back: normal inspection, no CVA tenderness, no vertebral tenderness Neurologic/Psychiatric: alert, oriented x 3 Skin: normal color, warm/dry Progress/Results/Core Measures Results/Orders Lab Results Laboratory Tests Test 01/26/20 09:30 Range/Units White Blood Count 16.9 H 4.3-11.0 10^3/uL Red Blood Count 5.66 4.35-5.85 10^6/uL Hemoglobin 17.5 13.3-17.7 G/DL Hematocrit 51 40-54 % Mean Corpuscular Volume 90 80-99 FL Mean Corpuscular Hemoglobin 31 25-34 PG Mean Corpuscular Hemoglobin Concent 34 32-36 G/DL Red Cell Distribution Width 13.3 10.0-14.5 % Platelet Count 182 130-400 10^3/uL Mean Platelet Volume 12.0 H 7.4-10.4 FL Neutrophils (%) (Auto) 75 42-75 % Lymphocytes (%) (Auto) 12 12-44 % Monocytes (%) (Auto) 5 0-12 % Eosinophils (%) (Auto) 7 0-10 % Basophils (%) (Auto) 1 0-10 % Neutrophils # (Auto) 12.7 H 1.8-7.8 X 10^3 Lymphocytes # (Auto) 2.0 1.0-4.0 X 10^3 Monocytes # (Auto) 0.9 0.0-1.0 X 10^3 Eosinophils # (Auto) 1.2 H 0.0-0.3 10^3/uL Basophils # (Auto) 0.1 0.0-0.1 10^3/uL Neutrophils % (Manual) 77 % Lymphocytes % (Manual) 12 % Monocytes % (Manual) 3 % Eosinophils % (Manual) 5 % Band Neutrophils 3 % Blood Morphology Comment NORMAL Urine Color YELLOW Urine Clarity CLEAR Urine pH 8.5 5-9 Urine Specific [place] 1.015 L 1.016-1.022 Urine Protein TRACE H NEGATIVE Urine Glucose (UA) NEGATIVE NEGATIVE Urine Ketones NEGATIVE NEGATIVE Urine Nitrite NEGATIVE NEGATIVE Urine Bilirubin NEGATIVE NEGATIVE Urine Urobilinogen 1.0 < = 1.0 MG/DL Urine Leukocyte Esterase NEGATIVE NEGATIVE Urine RBC (Auto) NEGATIVE NEGATIVE Urine RBC NONE /HPF Urine WBC NONE /HPF Urine Crystals NONE /LPF Urine Bacteria NEGATIVE /HPF Urine Casts NONE /LPF Urine Mucus LARGE H /LPF Urine Culture Indicated NO Sodium Level 139 135-145 MMOL/L Potassium Level 3.9 3.6-5.0 MMOL/L Chloride Level 105 98-107 MMOL/L Carbon Dioxide Level 23 21-32 MMOL/L Anion Gap 11 5-14 MMOL/L Blood Urea Nitrogen 11 7-18 MG/DL Creatinine 1.07 0.60-1.30 MG/DL Estimat Glomerular Filtration Rate > 60 BUN/Creatinine Ratio 10 Glucose Level 116 H 70-105 MG/DL Calcium Level 9.5 8.5-10.1 MG/DL Corrected Calcium 8.5-10.1 MG/DL Total Bilirubin 0.9 0.1-1.0 MG/DL Aspartate Amino Transf (AST/SGOT) 24 5-34 U/L Alanine Aminotransferase (ALT/SGPT) 34 0-55 U/L Alkaline Phosphatase 71 40-136 U/L C-Reactive Protein High Sensitivity 1.90 H 0.00-0.50 MG/DL Total Protein 7.4 6.4-8.2 GM/DL Albumin 4.6 H 3.2-4.5 GM/DL My Orders Orders - BRENNON BARAJAS MD Cbc With Automated Diff (01/26/20 09:39) Comprehensive Metabolic Panel (01/26/20 09:39) Hs C Reactive Protein (01/26/20 09:39) Ua Culture If Indicated (01/26/20 09:39) Ondansetron Injection (Zofran Injectio (01/26/20 09:45) Lactated Ringers (Lr 1000 Ml Iv Solution (01/26/20 09:39) Ed Iv/Invasive Line Start (01/26/20 09:39) Ketorolac Injection (Toradol Injection) (01/26/20 09:39) Manual Differential (01/26/20 09:30) Ct Abd/Pelv W (Appendicitis) (01/26/20 10:29) Iohexol Injection (Omnipaque 350 Mg/Ml 1 (01/26/20 10:45) Received Contrast (Hold Metformin- Contr (01/26/20 10:45) Ns (Ivpb) (Sodium Chloride 0.9% Ivpb Bag (01/26/20 10:45) Medications Given in ED Current Medications Medications Dose Ordered Sig/Anni Route Start Time Stop Time Status Last Admin Dose Admin Iohexol 100 ml ONCE ONCE IV 01/26/20 10:45 01/26/20 10:58 DC 01/26/20 10:54 100 ML Ondansetron HCl 4 mg ONCE ONCE IVP 01/26/20 09:45 01/26/20 09:46 DC 01/26/20 09:47 4 MG Sodium Chloride 100 ml ONCE ONCE IV 01/26/20 10:45 01/26/20 10:58 DC 01/26/20 10:54 80 ML Vital Signs/I&O 01/26/20 09:25 Temp 36.7 Pulse 105 Resp 18 B/P (MAP) 140/94 (109) Pulse Ox 100 Blood Pressure Mean: 109 Progress Progress Note : Progress Note Seen and evaluated. IV, labs, UA, LR 1 L bolus, Zofran 4 mg IV and Toradol [address] abdomen and pelvis pending UA study. Monitor patient. CT abdomen pelvis ordered due to pain. UA negative. White count elevated. Due to central location in the lower abdomen, diverticulitis and appendicitis with both feet in the differential. 1140: CT abdomen and pelvis complete. Diverticulitis noted without perforation or abscess. We will initiate outpatient treatment per patient wishes. Return precautions discussed at length. Patient also will need to follow-up with [place] for surgical referral. This was discussed. Discharged home with return precautions. Patient verbalize understanding instructions and agreement with plan. Diagnostic Imaging Diagonstic Imaging: CT Plain Films/CT/US/NM/MRI: abdomen, pelvis Comments [facility] [place] [place] NAME: SUNSHINE CHAN [facility]el [facility] REC#: [id number] PT STATUS: REG ER : 1980 PHYSICIAN: BRENNON BARAJAS MD ADMIT DATE: 01/26/20/ER Draft Date of Exam:01/26/20 CT ABD/PELV W (APPENDICITIS) PROCEDURE: CT abdomen and pelvis with contrast, rule out appendicitis. TECHNIQUE: Multiple contiguous axial images were obtained through the abdomen and pelvis after the administration of intravenous contrast. All CT scans use one or more of the following dose optimizing techniques: automated exposure control, MA and/or KvP adjustment based on a patient size and exam type, or iterative reconstruction. INDICATION: Pelvic and scrotal pain. COMPARISON: No priors. FINDINGS: There are findings most consistent with acute sigmoid diverticulitis at its [id number] one-third. There are regional thickened diverticula and perisigmoidal edematous and inflammatory changes infiltrating the adjacent fat. A tiny bubble of air posterior to the thickened inflamed sigmoid on axial image 107 is believed to be gas within a diverticulum itself. No convincing evidence for extraluminal air or transmural perforation. There is no gas or obvious intraluminal complexity involving the lumen of the adjacent urinary bladder. There is no anti-dependent free gas. No resultant bowel obstruction. No abscess or drainable fluid collection. There is no hydroureteronephrosis. The unobstructed kidneys appeared normal. The air-containing appendix is well visualized and is normal. The remaining abdominopelvic solid and hollow viscera are unremarkable. IMPRESSION: 1. Findings of acute [id number]-[id number] sigmoid diverticulitis without abscess, obstruction, nor convincing evidence for perforation. No findings of fistula. 2. Normal appendix with unobstructed urinary tracts. Dictated on workstation # [id number] Dict: 01/26/20 1101 Trans: 01/26/20 1110 [id number] Interpreted by: LATOYA MENDIETA Electronically signed by: Departure Impression Primary Impression: Sigmoid diverticulitis Disposition: HOME, SELF-CARE Condition: Stable Departure-Patient Inst. Decision time for Depature: 11:39 Referrals: NO,LOCAL PHYSICIAN (PCP/Family) Primary Care Physician Patient Instructions: Diverticulitis (DC) Add. Discharge Instructions: All discharge instructions reviewed with patient and/or family. Voiced understanding. It is very important that you follow[facility] with [facility] for [facility] to [facility] for further evaluation including colonoscopy. Take medications as directed. You may take ibuprofen 600 mg every 8 hours as needed for fever or pain. You may take Tylenol/acetaminophen 1000 mg every 8 hours as needed for fever or pain. Do not take the Tylenol/acetaminophen with the hydrocodone- containing compound as they both have acetaminophen in them. Clear liquid or light diet for the next few days and then advance as tolerated. Return for worse pain, fever, vomiting, weakness, blood in your stool, increasing abdominal pain or other concerns as needed. Scripts Metronidazole (Metronidazole) 500 Mg Tablet 500 MG PO BID, #14 TAB 0 Refills Prov: BRENNON BARAJAS MD 01/26/20 Ciprofloxacin HCl (Ciprofloxacin HCl) 500 Mg Tablet 500 MG PO BID, #14 TAB 0 Refills Prov: BRENNON BARAJAS MD 01/26/20 BRENNON BARAJAS MD January 26, 2020 09:53
[2020-01-26 09:59] LABS: BACTERIA,URINE NEGATIVE /HPF
[2020-01-26 10:02] LABS: ALBUMIN 4.6 GM/DL (3.2-4.5); CHLORIDE 105 MMOL/L (98-107); POTASSIUM 3.9 MMOL/L (3.6-5.0); SODIUM 139 MMOL/L (135-145)
[2020-01-26 10:03] LABS: CALCIUM 9.5 MG/DL (8.5-10.1)
[2020-01-26 10:04] LABS: GLUCOSE 116 MG/DL (70-105); TOTAL PROTEIN 7.4 GM/DL (6.4-8.2)
[2020-01-26 10:05] LABS: CARBON DIOXIDE 23 MMOL/L (21-32)
[2020-01-26 10:06] LABS: BILIRUBIN,TOTAL 0.9 MG/DL (0.1-1.0)
[2020-01-26 10:08] LABS: ALKALINE PHOSPHATASE 71 U/L (40-136); CREATININE SERUM 1.07 MG/DL (0.60-1.30); GFR ESTIMATED > 60
[2020-01-26 10:09] LABS: BUN/CREATININE RATIO 10
[2020-01-26 10:11] LABS: ALANINE AMINOTRANSFERASE 34 U/L (0-55)
[2020-01-26 10:15] LABS: BAND NEUTROPHILS 3 %; EOSINOPHILS % (MANUAL) 5 %; LYMPHOCYTES % (MANUAL) 12 %; MONOCYTES % (MANUAL) 3 %; NEUTROPHILS % (MANUAL) 77 %
[2020-01-26 10:16] LABS: RBC MORPH NORMAL
[2020-01-26] MEDS ORDERED: NS 100 ML (IVPB) BAG IV ONE (10:45)
[2020-01-26] MEDS ORDERED: HOLD METFORMIN - RECEIVED CONTRAST 20 ML VIAL IV SCH (10:45)
[2020-01-26] MEDS ORDERED: IOHEXOL 350 MG/ML 100 ML (OMNIPAQUE 350) VIAL IV ONE (10:45)
--- NOTE | 2020-01-26 11:10 | Diagnostic Imaging Report ---
PROCEDURE: CT abdomen and pelvis with contrast, rule out appendicitis. TECHNIQUE: Multiple contiguous axial images were obtained through the abdomen and pelvis after the administration of intravenous contrast. All CT scans use one or more of the following dose optimizing techniques: automated exposure control, MA and/or KvP adjustment based on a patient size and exam type, or iterative reconstruction. INDICATION: Pelvic and scrotal pain. COMPARISON: No priors. FINDINGS: There are findings most consistent with acute sigmoid diverticulitis at its rvj-ev-tojwy one-third. There are regional thickened diverticula and perisigmoidal edematous and inflammatory changes infiltrating the adjacent fat. A tiny bubble of air posterior to the thickened inflamed sigmoid on axial image 107 is believed to be gas within a diverticulum itself. No convincing evidence for extraluminal air or transmural perforation. There is no gas or obvious intraluminal complexity involving the lumen of the adjacent urinary bladder. There is no anti-dependent free gas. No resultant bowel obstruction. No abscess or drainable fluid collection. There is no hydroureteronephrosis. The unobstructed kidneys appeared normal. The air-containing appendix is well visualized and is normal. The remaining abdominopelvic solid and hollow viscera are unremarkable. IMPRESSION: 1. Findings of acute vms-ph-sfveed sigmoid diverticulitis without abscess, obstruction, nor convincing evidence for perforation. No findings of fistula. 2. Normal appendix with unobstructed urinary tracts. Dictated by: Dictated on workstation # [id number]
[2020-01-26] MEDS ORDERED: CIPR500T4 PO (11:40)
[2020-01-26] MEDS ORDERED: METR-145 PO (11:40)
[2020-01-26] MEDS ORDERED: HYDR-4226 PO (11:40)
[2020-01-26 12:23] VITALS: BP 132/82
== END 2020-01-26 12:23 | disposition home or self-care (01) ==
LOC: EDUNIT# 09:25 → ER 09:26
DX: K57.32 Diverticulitis of large intestine without perforation or abscess without bleeding (principal); F17.210 Nicotine dependence, cigarettes, uncomplicated; Z88.0 Allergy status to penicillin
CPT/HCPCS: 36415; 74177; 80053; 81000; 85007; 85027; 86141

== ENCOUNTER 2021-02-13 05:40 | Outpatient (CLI) | payer OTHER ==
[~2021-02-13] VITALS: Ht 182.9 cm; Wt 115.9 kg
[~2021-02-13 05:40] MED LIST changes: +CIPR500T5 PO; +HYDR-4226 PO; +METR-145 PO
[2021-02-13] MEDS ORDERED: IBUP-1780 PO (09:56)
== END 2021-02-13 10:03 | disposition home or self-care (01) ==
LOC: PREOP 05:40
PROVIDERS: ATTEND Otolaryngology Otolaryngology/Facial Plastic Surgery
DX: Z01.818 Encounter for other preprocedural examination (principal)

== ENCOUNTER 2021-02-15 06:24 | Day surgery (SDC) | payer OTHER ==
[~2021-02-15] VITALS: Ht 182 cm; Wt 115.9 kg
[2021-02-15] VITALS (8 sets, daily range): BP systolic 96–151; BP diastolic 45–93
[~2021-02-15 06:24] MED LIST changes: +IBUP-1780 PO
[2021-02-15] MEDS ORDERED: LACTATED RINGERS 1,000 ML IV PRN (06:45)
[2021-02-15] MEDS ORDERED: LIDOCAINE PF 2% 5 ML (XYLOCAINE) VIAL ONE (07:40)
[2021-02-15] MEDS ORDERED: SEVOFLURANE (ULTANE) 15 ML INHAL SOLN ONE (07:40)
[2021-02-15] MEDS ORDERED: MIDAZOLAM 2 MG/2 ML (VERSED) VIAL ONE (07:40)
[2021-02-15] MEDS ORDERED: fentaNYL INJ 100 MCG/2 ML AMP ONE (07:40)
[2021-02-15] MEDS ORDERED: ONDANSETRON 4 MG/2 ML (SDV) Z0FRAN ONE (07:40)
[2021-02-15] MEDS ORDERED: proPOfol 200 MG/20 ML (DIPRIVAN) VIAL IV ONE (07:40)
--- NOTE | 2021-02-15 09:04 | Progress Note-Pre Operative ---
Pre-Operative Progress Note H&P Reviewed The H&P was reviewed, patient examined and no changes noted. Date Seen by Provider: Feb 15, 2021 Time Seen by Provider: 08:30 Date H&P Reviewed: Feb 15, 2021 Time H&P Reviewed: 08:30 Pre-Operative Diagnosis: Bilat Chornic AYO, Plugged Left Tube SUNSHINE LOPEZ MD Feb 15, 2021 09:04
--- NOTE | 2021-02-15 09:05 | Progress Note-Post Operative ---
Post-Operative Progess Note Surgeon (s)/Anthropology Instructor (s) Surgeon SUNSHINE LOPEZ MD Anthropology Instructor n/a Pre-Operative Diagnosis Bilat Chornic AYO, Plugged Left Tube Post-Operative Diagnosis same Post-Op Procedure Note Date of Procedure: Feb 15, 2021 Name of Procedure Performed: BMT Description & Findings Description and Findings: n/a Anesthesia Type mask Estimated Blood Loss minimal Packing none. Specimen(s) collected/removed none SUNSHINE LOPEZ MD Feb 15, 2021 09:05
[2021-02-15] MEDS ORDERED: APAP 325 MG/10.15 ML LIQ (TYLENOL) UDC PO PRN (09:15)
[2021-02-15] MEDS ORDERED: morphine INJ 10 MG/ML 1ML (SYR OR VIAL) IVP ONE (09:15)
[2021-02-15] MEDS ORDERED: ONDANSETRON 4 MG/2 ML (SDV) Z0FRAN IVP PRN (09:15)
[2021-02-15] MEDS ORDERED: GENTAMICIN EACH EAR (09:42)
--- NOTE | 2021-02-15 10:44 | Anesthesia-General Post-Op ---
General Patient Condition Mental Status/LOC: Same as Preop Cardiovascular: Satisfactory Nausea/Vomiting: Absent Respiratory: Satisfactory Pain: Controlled Complications: Absent Post Op Complications Complications None Follow Up Care/Instructions Patient Instructions None needed. Anesthesia/Patient Condition Patient Condition Patient was seen after the procedure and he was doing well, no complaints, stable vital signs, no apparent adverse anesthesia problems. DEUCE MOLINA 3, 2021 10:44
== END 2021-02-15 10:15 | disposition home or self-care (01) ==
LOC: SDC 06:24
PROVIDERS: ATTEND Otolaryngology Otolaryngology/Facial Plastic Surgery
DX: H65.23 Chronic serous otitis media, bilateral (principal); H69.83 Other specified disorders of Eustachian tube, bilateral; H68.102 Unspecified obstruction of Eustachian tube, left ear; I10 Essential (primary) hypertension; F32.9 Major depressive disorder, single episode, unspecified; F17.210 Nicotine dependence, cigarettes, uncomplicated; F43.10 Post-traumatic stress disorder, unspecified
CPT/HCPCS: 87081

== ENCOUNTER 2021-11-09 14:12 | Emergency (ER) | payer OTHER ==
[~2021-11-09] VITALS: Ht 182 cm; Wt 113.0 kg
[~2021-11-09 14:12] MED LIST changes: +GENTAMICIN EACH EAR; -SULF1TAB35 PO; +SULF1TAB38 PO
[2021-11-09] MEDS ORDERED: METH-732 PO (14:29)
[2021-11-09] MEDS ORDERED: ACHD5005 PO (14:29)
[2021-11-09] MEDS ORDERED: KETOROLAC 60 MG/2 ML VIAL IM ONE (14:30)
[2021-11-09] MEDS ORDERED: ORPHENADRINE 60 MG/2 ML (NORFLEX) AMP (ED ONLY) IM ONE (14:30)
--- NOTE | 2021-11-09 14:30 | ED Back Pain ---
General Chief Complaint: Back Problems Stated Complaint: BACK PAIN Source of Information: Patient Exam Limitations: No Limitations History of Present Illness Date Seen by Provider: Nov 09, 2021 Time Seen by Provider: 14:25 Initial Comments To ER with reports of right-sided upper lumbar paraspinous pain and left lower paraspinous lumbar pain. This began this morning after helping his brother move a couch. Pain does not radiate to his legs, no loss of bowel or bladder control. No fever. He did not fall and there was no direct trauma to the back. No loss of sensation of genitals. Location: Lumbar Spine Timing/Duration: 4-6 Hours Pain/Injury Location: Back Radiation: Other (No radiation) Method of Injury: Other (Lifting) Modifying Factors: Worse With Movement Associated Symptoms: lower back pain Allergies and Home Medications Allergies Coded Allergies: Penicillins (Unverified Allergy, Mild, 02/13/21) WHEN CHILD amoxicillin (Unverified Allergy, Mild, 02/13/21) WHEN CHILD UNKNOWN REACTION Patient Home Medication List Home Medication List Reviewed: Yes Ibuprofen (Ibuprofen) 800 Mg Tablet, 800 MG PO Q8H PRN for PAIN-MILD, (Reported) Entered as Reported by: GIOVANNI GALICIA on 02/13/21 0956 [Garamycin Opthalmic ] , 3 DROPS EACH EAR BID Prescribed by: LEXIE MCKEON on 02/15/21 0942 Review of Systems Constitutional: see HPI EENTM: see HPI Respiratory: no symptoms reported Cardiovascular: no symptoms reported Genitourinary: no symptoms reported Musculoskeletal: see HPI, back pain Skin: no symptoms reported Psychiatric/Neurological: No Symptoms Reported Past Xpuouhz-Bvrrog-Mgzxzl Hx Patient Social History Tobacco Use?: Yes Tobacco type used: Cigarettes Smoking Status: Current Everyday Smoker Substance use?: Yes Substance type: Marijuana Alcohol Use?: No Pt feels they are or have been: No Immunizations Up To Date Tetanus Booster (TDap): More than 5yrs First/Initial COVID19 Vaccinat: UNK Second COVID19 Vaccination Bryant: UNK Seasonal Allergies Seasonal Allergies: No Past Medical History Surgeries: Yes (TUBES EARS, SCHRAPNEL LEFT SIDE NECK) Cystectomy Respiratory: No Currently Using CPAP: No Currently Using BIPAP: No Cardiac: Yes Hypertension Neurological: No Reproductive Disorders: No Genitourinary: No Gastrointestinal: No Musculoskeletal: Yes Chronic Back Pain Endocrine: No HEENT: Yes Chronic Ear Infection Loss of Vision: Denies Hearing Impairment: Denies Cancer: No Psychosocial: Yes Anxiety, PTSD, Depression Integumentary: No Blood Disorders: No Family Medical History No Pertinent Family Hx Physical Exam Vital Signs Capillary Refill : Height, Weight, BMI Height: 0'72.00" Weight: 285lbs. 0.0oz. 129.311264ld; 34.98 BMI Method:Stated General Appearance: No Apparent Distress, WD/WN Neck: Full Range of Motion, Normal Inspection Respiratory: No Accessory Muscle Use, No Respiratory Distress Gastrointestinal: Non Tender, Soft Back: Other (Dilatory to fast track 2. His right paraspinous muscles at the level of about L1 or L2 are very tender to palpation. Left lower at about L4-L5 is tender.) Extremity: Normal Capillary Refill, Normal Inspection Neurologic/Psychiatric: Alert, Oriented x3 Skin: Normal Color, Warm/Dry Departure Impression Primary Impression: Acute lumbar myofascial strain Disposition: 01 HOME, SELF-CARE Condition: Stable Departure-Patient Inst. Decision time for Depature: 14:28 Referrals: NO,LOCAL PHYSICIAN (PCP/Family) Primary Care Physician Patient Instructions: Muscle Strain ED Add. Discharge Instructions: 1. You can try ice or heat, whichever gives you the most relief. Medication as directed. All discharge instructions reviewed with patient and/or family. Voiced understanding. Scripts Hydrocodone/Acetaminophen (Hydrocodone-Acetamin 5-325 mg) 1 Each Tablet 1 TAB PO Q4H PRN for PAIN-MODERATE (5-7), #14 TAB Prov: LINCOLN CHARLES APRN 11/09/21 Methocarbamol (Methocarbamol) 750 Mg Tablet 750 MG PO Q6-8HR for Back Pain, #30 TAB Prov: LINCOLN CHARLES APRN 11/09/21 LINCOLN CHARLES APRN Nov 09, 2021 14:30
[2021-11-09 14:53] VITALS: BP 131/79
== END 2021-11-09 14:54 | disposition home or self-care (01) ==
LOC: EDUNIT# 14:12 → ER 14:13
DX: S39.012A Strain of muscle, fascia and tendon of lower back, initial encounter (principal); F17.210 Nicotine dependence, cigarettes, uncomplicated; X50.0XXA Overexertion from strenuous movement or load, initial encounter
CPT/HCPCS: 99284

== ENCOUNTER 2022-03-01 13:02 | Emergency (ER) | payer OTHER ==
[~2022-03-01] VITALS: Ht 182.8 cm; Wt 104.0 kg
[~2022-03-01 13:02] MED LIST changes: +METH-732 PO
[2022-03-01] MEDS ORDERED: LIDOCAINE/EPI 1%-1:100,000 (XYLOCAINE) 10 ML ONE (13:22)
--- NOTE | 2022-03-01 13:44 | ED Lower Extremity ---
General Chief Complaint: Laceration Stated Complaint: BILAT LEG LAC Nursing Triage Note: pt to room by wheelchair. this rn and another rn dressed wound during triage. laceration to right dewey. pt states he was playing airsoft, jumped on a car, and went through the windshield, causing the lac Source: patient Exam Limitations: no limitations (BENJAMIN KIRKPATRICK) History of Present Illness Date Seen by Provider: Mar 01, 2022 Time Seen by Provider: 13:47 Initial Comments This is a healthy 41 year old that presents to the ER for evaluation of a right knee laceration. He states he was playing [place] in [place] and accidentally stepped through a windshield, lacerating his knee. He states it was "squirting" and he wrapped it and came here. He denies other injuries. Tetanus is up to date. Pain currently a burning /. Onset: just prior to arrival Pain/Injury Location: right knee (BENJAMIN KIRKPATRICK) Allergies and Home Medications Allergies Coded Allergies: Penicillins (Unverified Allergy, Mild, 02/13/21) WHEN CHILD amoxicillin (Unverified Allergy, Mild, 02/13/21) WHEN CHILD UNKNOWN REACTION Patient Home Medication List Home Medication List Reviewed: Yes (BENJAMIN KIRKPATRICK) Cephalexin (Cephalexin) 500 Mg Tablet, 500 MG PO TID Prescribed by: Jake Kirkpatrick on 03/01/22 1454 Diclofenac Sodium (Diclofenac Sodium) 75 Mg Tablet.dr, 75 MG PO BID Prescribed by: Jake Kirkpatrick on 03/01/22 1454 Hydrocodone/Acetaminophen (Hydrocodone-Acetamin 5-325 mg) 1 Each Tablet, 1 TAB PO Q4H PRN for PAIN-MODERATE (5-7) Prescribed by: LINCOLN CHARLES on 11/09/21 1430 Ibuprofen (Ibuprofen) 800 Mg Tablet, 800 MG PO Q8H PRN for PAIN-MILD, (Reported) Entered as Reported by: GIOVANNI GALICIA on 02/13/21 0956 Methocarbamol (Methocarbamol) 750 Mg Tablet, 750 MG PO Q6-8HR Prescribed by: LINCOLN CHARLES on 11/09/21 1429 [Garamycin Opthalmic ] , 3 DROPS EACH EAR BID Prescribed by: LEXIE MCKEON on 02/15/21 0942 Discontinued Medications Diclofenac Sodium (Diclofenac Sodium) 75 Mg Tablet., 75 MG PO BID Prescribed by: Jake Kirkpatrick on 03/01/22 1402 Review of Systems Constitutional: no symptoms reported EENTM: no symptoms reported Respiratory: no symptoms reported Cardiovascular: no symptoms reported Musculoskeletal: other (right knee pain/laceration) Skin: other (laceration right knee) Psychiatric/Neurological: No Symptoms Reported (BENJAMIN KIRKPATRICK) Past Msvphfp-Dpxfrr-Nubmte Hx Immunizations Up To Date Tetanus Booster (TDap): More than 5yrs First/Initial COVID19 Vaccinat: UNK Second COVID19 Vaccination Bryant: UNK (BENJAMIN KIRKPATRICK) Seasonal Allergies Seasonal Allergies: No (BENJAMIN KIRKPATRICK) Past Medical History Surgeries: Yes (TUBES EARS, SCHRAPNEL LEFT SIDE NECK) Cystectomy Respiratory: No Currently Using CPAP: No Currently Using BIPAP: No Cardiac: Yes Hypertension Neurological: No Reproductive Disorders: No Genitourinary: No Gastrointestinal: No Musculoskeletal: Yes Chronic Back Pain Endocrine: No HEENT: Yes Chronic Ear Infection Loss of Vision: Denies Hearing Impairment: Denies Cancer: No Psychosocial: Yes Anxiety, PTSD, Depression Integumentary: No Blood Disorders: No (BENJAMIN KIRKPATRICK) Family Medical History No Pertinent Family Hx (BENJAMIN KIRKPATRICK) Physical Exam Vital Signs Vital Signs - First Documented 03/01/22 13:10 Temp 37.0 Pulse 99 Resp 16 B/P (MAP) 133/96 (108) Pulse Ox 96 (BORA ROJAS MD) Vital Signs Capillary Refill : (BENJAMIN KIRKPATRICK) Height, Weight, BMI Height: 0'72.00" Weight: 285lbs. 0.0oz. 129.621653le; 31.00 BMI Method:Stated General Appearance: WD/WN, no apparent distress HEENT: PERRL/EOMI Neck: non-tender Cardiovascular: regular rate, rhythm Respiratory: chest non-tender Knees: right knee other (7 cm laceration to be inferior aspect of the right knee extending down to the patellar tendon. mild fascial defect measuring approximately 2 cmPartial-thickness tendon injury measuring around 1 cm. Numerous items of debris) Neurologic/Psychiatric: proof load mechanic II-XII nml as tested, no motor/sensory deficits, alert (BENJAMIN KIRKPATRICK) Progress/Results/Core Measures Results/Orders Medications Given in ED Current Medications Medications Dose Ordered Sig/Anni Route Start Time Stop Time Status Last Admin Dose Admin Lidocaine/ Epinephrine 10 ml STK-MED ONCE .ROUTE 03/01/22 13:22 03/01/22 13:23 DC 03/01/22 13:30 10 ML (BORA ROJAS MD) Vital Signs/I&O 03/01/22 03/01/22 13:10 14:37 Temp 37.0 Pulse 99 81 Resp 16 18 B/P (MAP) 133/96 (108) 131/93 Pulse Ox 96 95 (BORA ROJAS MD) Blood Pressure Mean: 108 Departure Communication (PCP) Patient's wound had a small arterial bleed which was controlled with pressure. We irrigated the wound extensively and removed numerous foreign bodies including small shards of glass and dirt. There was a small fascial defect and tendon injury but the patient had full range of motion of the knee and was able to lift his leg off the bed without any drop. The wound was loosely closed at bedside. I spoke with the orthopedist on-call and he agrees we should place the patient in a knee immobilizer and started on antibiotics. He will follow-up with the patient on an outpatient basis. I had an extensive conversation with the patient about not bending his knee or putting weight on the knee without the knee immobilizer in place as this could cause a tendon rupture. (BENJAMIN KIRKPATRICK) Impression Primary Impression: Leg laceration Disposition: 01 HOME, SELF-CARE Condition: Stable Departure-Patient Inst. Decision time for Depature: 13:59 (BENJAMIN KIRKPATRICK) Referrals: FREDI ALMAGUER MD Patient Instructions: Laceration Repair With Stitches ED, Wound Care (DC) Add. Discharge Instructions: Please do not bear weight on your leg if you do not have the knee immobilizer on. Take antibiotics until they are complete. Call the orthopedist and schedule close follow-up as we discussed. Return to the emergency room if any severe changes or worsening of symptoms. All discharge instructions reviewed with patient and/or family. Voiced understanding. Scripts Cephalexin (Cephalexin) 500 Mg Tablet 500 MG PO TID for 7 Days, #21 TAB Prov: BENJAMIN KIRKPATRICK 03/01/22 Diclofenac Sodium (Diclofenac Sodium) 75 Mg Tablet. 75 MG PO BID for 7 Days, #14 TAB Prov: BENJAMIN KIRKPATRICK 03/01/22 ATTENDING PHYSICIAN NOTE: I was physically present as attending physician in the emergency department during the care of this patient, but I was not directly involved in the decision making or delivery of care for this patient. (BORA ROJAS MD) BENJAMIN KIRKPATRICK Mar 01, 2022 13:44 BORA ROJAS MD Mar 01, 2022 21:00
[2022-03-01] MEDS ORDERED: CEPH500T PO ×2 (14:02→14:54)
[2022-03-01] MEDS ORDERED: DICL75TA2 PO ×2 (14:02→14:54)
--- NOTE | 2022-03-01 14:12 | Diagnostic Imaging Report ---
EXAMINATION: Right knee radiograph. EXAM DATE: 03/01/2022. COMPARISON: None available. HISTORY: Laceration/injury. TECHNIQUE: Three views FINDINGS: There is no acute fracture, dislocation, or destructive osseous process. The joint spaces are normal. The soft tissues are normal. IMPRESSION: 1. No acute osseous abnormality. Dictated by: Dictated on workstation # [id number]
[2022-03-01 14:37] VITALS: BP 131/93
== END 2022-03-01 14:40 | disposition home or self-care (01) ==
LOC: EDUNIT# 13:02 → ER 13:04
DX: S81.011A Laceration without foreign body, right knee, initial encounter (principal); W45.8XXA Other foreign body or object entering through skin, initial encounter; Y92.89 Other specified places as the place of occurrence of the external cause; Y93.89 Activity, other specified
CPT/HCPCS: 12002; 73562

== ENCOUNTER → 2022-03-20 | Outpatient (CLI) | payer OTHER ==
[~2022-03-20] MED LIST changes: +CEPH500T PO; +DICL75TA2 PO
== END ==
LOC: ORTHO 09:31
PROVIDERS: ATTEND Orthopaedic Surgery
DX: S81.011A Laceration without foreign body, right knee, initial encounter (principal); X58.XXXA Exposure to other specified factors, initial encounter
CPT/HCPCS: 99203

== ENCOUNTER → 2022-04-03 | Outpatient (CLI) | payer OTHER | LOC: ORTHO 08:49 | PROVIDERS: ATTEND Orthopaedic Surgery | DX: S81.011D Laceration without foreign body, right knee, subsequent encounter (principal); X58.XXXD Exposure to other specified factors, subsequent encounter | CPT/HCPCS: 99212 ==

== ENCOUNTER 2022-04-12 14:32 | Outpatient (RCR) | payer OTHER | END 2022-04-14 | disposition home or self-care (01) | PROVIDERS: ATTEND Orthopaedic Surgery | DX: S81.011D Laceration without foreign body, right knee, subsequent encounter (principal); W19.XXXD Unspecified fall, subsequent encounter ==

== ENCOUNTER → 2022-04-17 | Outpatient (CLI) | payer OTHER | LOC: ORTHO 09:15 | PROVIDERS: ATTEND Orthopaedic Surgery | DX: S81.011D Laceration without foreign body, right knee, subsequent encounter (principal); X58.XXXD Exposure to other specified factors, subsequent encounter | CPT/HCPCS: 20610 ==

== ENCOUNTER → 2022-05-01 | Outpatient (CLI) | payer OTHER | LOC: ORTHO 09:52 | PROVIDERS: ATTEND Orthopaedic Surgery | DX: S81.011A Laceration without foreign body, right knee, initial encounter (principal); X58.XXXA Exposure to other specified factors, initial encounter | CPT/HCPCS: 99212 ==

== ENCOUNTER 2022-05-13 13:51 | Outpatient (RCR) | payer OTHER | END 2022-05-15 | disposition home or self-care (01) | PROVIDERS: ATTEND Orthopaedic Surgery | DX: S81.011D Laceration without foreign body, right knee, subsequent encounter (principal); W19.XXXD Unspecified fall, subsequent encounter ==

== ENCOUNTER 2022-05-16 14:24 | Outpatient (RCR) | payer OTHER ==
[2022-05-24] MEDS ORDERED: MELO15TA39 PO (11:41)
== END 2022-06-14 | disposition home or self-care (01) ==
PROVIDERS: ATTEND Orthopaedic Surgery
DX: S81.011D Laceration without foreign body, right knee, subsequent encounter (principal); W19.XXXD Unspecified fall, subsequent encounter

== ENCOUNTER → 2022-05-22 | Outpatient (CLI) | payer OTHER ==
[~2022-05-22] MED LIST changes: +MELO15TA39 PO
[2022-05-22 09:53] LABS: HEMATOCRIT 49 % (40-54); HEMOGLOBIN 17.1 g/dL (13.3-17.7); MEAN CORPUSCULAR HEMOGLOBIN 32 pg (25-34); MEAN CORPUSCULAR HGB CONC 35 g/dL (32-36); MEAN CORPUSCULAR VOLUME 91 fL (80-99); MEAN PLATELET VOLUME 11.6 fL (9.0-12.2); PLATELET COUNT 178 10^3/uL (130-400); WHITE BLOOD COUNT 12.3 10^3/uL (4.3-11.0)
[2022-05-22 10:20] LABS: CALCIUM 9.7 MG/DL (8.5-10.1); CREATININE SERUM 0.89 MG/DL (0.60-1.30); POTASSIUM 4.2 MMOL/L (3.6-5.0)
== END ==
LOC: ORTHO 08:54
PROVIDERS: ATTEND Orthopaedic Surgery
DX: M22.2X1 Patellofemoral disorders, right knee (principal)
CPT/HCPCS: 36415; 80048; 85027; 99212

== ENCOUNTER → 2022-05-24 | Outpatient (CLI) | payer OTHER ==
[~2022-05-24] VITALS: Ht 182.9 cm; Wt 98.4 kg
== END | disposition home or self-care (01) ==
LOC: PREOP 11:09
PROVIDERS: ATTEND Orthopaedic Surgery
DX: Z01.818 Encounter for other preprocedural examination (principal)